=== PATIENT | male | born 1950 | race Caucasian/White ===

== ENCOUNTER 2018-10-29 10:38 | Outpatient (REF) | payer MEDICARE, SELFPAY ==
[2018-10-29 21:34] LABS: Anion Gap 9.4 mmol/L (3-11); BUN 19 mg/dL (7-18); CO2 27.6 mmol/L (21.0-32.0); CREATININE 0.99 mg/dL (0.70-1.30); Calcium 9.1 mg/dL (8.5-10.1); Chloride 105 mmol/L (98-107); Glucose 99 mg/dL (70-100); Potassium 4.8 mmol/L (3.5-5.1); Sodium 142 mmol/L (136-145)
[2018-10-29 23:04] LABS: Calculated LDL 168 mg/dL; Cholesterol 239 mg/dL (50-200); HDL Cholesterol 59 mg/dL (40-60); Triglyceride 62 mg/dL (30-150)
[2018-11-01 10:08] LABS: PSA, Screening 1.7 ng/ml (0-4.5)
== END 2018-10-29 10:58 ==
LOC: NCHCN 10:38
PROVIDERS: Visit Provider Internal Medicine
DX: I48.92 Unspecified atrial flutter (principal); Z12.5 Encounter for screening for malignant neoplasm of prostate; Z13.6 Encounter for screening for cardiovascular disorders
CPT/HCPCS: 80048; 80061; 83721; 84153

== ENCOUNTER 2021-02-05 13:13 | Outpatient (REF) | payer MEDICARE, SELFPAY ==
[2021-02-05 14:13] LABS: Calculated LDL 175 mg/dL (<100); Cholesterol 252 mg/dL (<200); HDL Cholesterol 60 mg/dL (40-60); Triglyceride 88 mg/dL (<150)
== END 2021-02-05 13:14 | disposition home or self-care (01) ==
LOC: NCHCN 13:13
PROVIDERS: Visit Provider Internal Medicine
DX: E78.79 Other disorders of bile acid and cholesterol metabolism (principal)
CPT/HCPCS: 80061

== ENCOUNTER 2022-02-04 10:28 | Outpatient (REF) | payer MEDICARE, SELFPAY ==
[2022-02-04 14:47] LABS: Calculated LDL 151 mg/dL (<100); Cholesterol 228 mg/dL (<200); HDL Cholesterol 64 mg/dL (40-60); Triglyceride 66 mg/dL (<150)
== END 2022-02-04 10:29 | disposition home or self-care (01) ==
LOC: NCHCN 10:28
PROVIDERS: Visit Provider Internal Medicine
DX: E78.79 Other disorders of bile acid and cholesterol metabolism (principal)
CPT/HCPCS: 80061

== ENCOUNTER 2023-02-09 11:01 | Outpatient (REF) | payer MEDICARE, SELFPAY ==
[2023-02-09 15:26] LABS: Calculated LDL 136 mg/dL (<100); Cholesterol 214 mg/dL (<200); HDL Cholesterol 64 mg/dL (40-60); Triglyceride 71 mg/dL (<150)
== END 2023-02-09 11:02 | disposition home or self-care (01) ==
LOC: NCHCN 11:01
PROVIDERS: PCP Internal Medicine; Visit Provider Internal Medicine
DX: E78.5 Hyperlipidemia, unspecified (principal)
CPT/HCPCS: 80061

== ENCOUNTER 2024-02-29 09:41 | Outpatient (REF) | payer MEDICARE, SELFPAY ==
[2024-02-29 16:40] LABS: ALT 38 U/L (16-63); AST 41 U/L (15-37); Alkaline Phosphatase 88 U/L (46-116); Anion Gap 6.4 mmol/L (3-11); BUN 20 mg/dL (7-18); Bilirubin, Total 1.03 mg/dL (0.2-1.0); CO2 30.6 mmol/L (21.0-32.0); CREATININE 1.1 mg/dL (0.70-1.30); Calcium 9.4 mg/dL (8.5-10.1); Calculated LDL 84 mg/dL (<100); Chloride 104 mmol/L (98-107); Cholesterol 166 mg/dL (<200); Estimated GFR 70.88 (mL/min/1.73m2); Glucose 99 mg/dL (74-106); HDL Cholesterol 71 mg/dL (40-60); Potassium 4.4 mmol/L (3.5-5.1); Sodium 141 mmol/L (136-145); Total Protein 7.6 g/dL (6.4-8.2); Triglyceride 55 mg/dL (<150)
== END 2024-02-29 09:42 | disposition home or self-care (01) ==
LOC: NCHCN 09:41
PROVIDERS: PCP Internal Medicine; Visit Provider Internal Medicine
DX: E78.5 Hyperlipidemia, unspecified (principal)
CPT/HCPCS: 80053; 80061

== ENCOUNTER 2024-07-25 18:46 | Outpatient (REF) | payer MEDICARE, SELFPAY ==
[2024-07-25 21:39] LABS: ALT 28 U/L (16-63); AST 36 U/L (15-37); Albumin 4.1 g/dL (3.4-5.0); Alkaline Phosphatase 82 U/L (46-116); Anion Gap 6.8 mmol/L (3-11); BUN 25 mg/dL (7-18); CO2 29.2 mmol/L (21.0-32.0); CREATININE 1.2 mg/dL (0.70-1.30); Calcium 9.2 mg/dL (8.5-10.1); Chloride 105 mmol/L (98-107); Estimated GFR 63.46 (mL/min/1.73m2); Glucose 87 mg/dL (74-106); Potassium 4.5 mmol/L (3.5-5.1); Sodium 141 mmol/L (136-145); Total Protein 7.1 g/dL (6.4-8.2)
== END 2024-07-25 18:47 | disposition home or self-care (01) ==
LOC: NCHCN 18:46
PROVIDERS: PCP Internal Medicine; Visit Provider Internal Medicine
DX: R79.89 Other specified abnormal findings of blood chemistry (principal)
CPT/HCPCS: 80053